=== PATIENT | male | born 1980 | race Two or more races ===

== ENCOUNTER 2020-10-27 21:26 | Emergency (ER) | payer BC, MEDICAID ==
[~2020-10-27] VITALS: Ht 170.2 cm; Wt 88.6 kg
[~2020-10-27 21:26] MED LIST: ASPI-1071 PO; ATOR20TA66 PO; FLUO40CA10 PO; GABA800T11 PO; HYDR-4353 PO; NITR0.4T48 SL; OMEP20CA15 PO
[2020-10-27 21:40] VITALS: BP 133/85
[2020-10-27] MEDS ORDERED: LIDOcaine 1% W/epiNEPHrine 1:200,000 10ml vial IJ ONE (22:35)
[2020-10-27] MEDS ORDERED: LIDOcaine 1% W/epiNEPHrine 1:100,000 20ml vial IJ ONE (22:40)
== END 2020-10-27 23:23 | disposition home or self-care (01) ==
LOC: ER 21:26
DX: S50.852A Superficial foreign body of left forearm, initial encounter (principal); X58.XXXA Exposure to other specified factors, initial encounter; Y93.89 Activity, other specified; Y92.89 Other specified places as the place of occurrence of the external cause; Y99.8 Other external cause status
CPT/HCPCS: 10120; 73090; 99284